=== PATIENT | female | born 1965 | race Caucasian/White ===

== ENCOUNTER 2023-08-26 12:18 | Emergency (ER) | payer OTHER ==
[~2023-08-26] VITALS: Ht 162.6 cm; Wt 68.0 kg
[2023-08-26 13:15] LABS: BASOPHILS # (AUTO) 0.02 K/uL (0.00-0.20); BASOPHILS % (AUTO) 0.3 % (0.0-5.0); EOSINOPHILS # (AUTO) 0.04 K/uL (0.00-0.70); EOSINOPHILS % (AUTO) 0.6 % (0.0-8.0); HEMATOCRIT 44.4 % (36-48); IMMATURE GRANULOCYTE ABSOLUTE 0.02 K/uL (0-1); LYMPHOCYTES # (AUTO) 1.6 K/uL (1.0-4.8); LYMPHOCYTES % (AUTO) 23.1 % (21.0-51.0); MEAN CORPUSCULAR HEMOGLOBIN 27.6 pg (27.0-33.0); MEAN CORPUSCULAR HGB CONC 33.3 g/dL (32.0-36.0); MEAN CORPUSCULAR VOLUME 82.7 fL (79-99); MONOCYTES # (AUTO) 0.4 K/uL (0.1-1.0); MONOCYTES % (AUTO) 6.2 % (3.0-13.0); NEUTROPHILS # (AUTO) 4.8 K/uL (1.8-7.7); NEUTROPHILS % (AUTO) 69.5 % (40.0-77.0); PLATELET COUNT (AUTO) 206 K/uL (130-400); RED BLOOD CELL COUNT(AUTO) 5.37 MIL/uL (4.00-5.50); RED CELL DISTRIBUTION WIDTH 13.3 % (11.0-15.5)
[2023-08-26 13:36] LABS: POTASSIUM 3.5 mmol/L (3.5-5.1)
[2023-08-26 13:37] LABS: B-TYPE NATRIURETIC PEPTIDE 7 pg/mL (0-100)
[2023-08-26 13:51] LABS: ALBUMIN 4.3 g/dL (3.5-5.0); BILIRUBIN,TOTAL 0.8 mg/dL (0.2-1.0)
[2023-08-26 14:09] VITALS: BP 134/88; PULSE 84; RESP 18; O2SAT 99
[2023-08-26 15:12] LABS: APPEARANCE,URINE CLEAR (CLEAR); BILIRUBIN,URINE NEGATIVE (NEGATIVE); COLOR,URINE LIGHT-YELLOW (YELLOW); GLUCOSE, URINE (UA) NEGATIVE (NEGATIVE); KETONES,URINE NEGATIVE (NEGATIVE); LEUKOCYTE ESTERASE ,URINE NEGATIVE Leu/uL (NEGATIVE); NITRATE,URINE NEGATIVE (NEGATIVE); OCCULT BLOOD,URINE SMALL (NEGATIVE); PH,URINE 5.5 (5.0-8.0); PROTEIN,URINE NEGATIVE (NEGATIVE); UROBILINOGEN,URINE 0.2 mg/dL (0.2-1.0)
[2023-08-26 15:15] LABS: ADD UA MICROSCOPIC YES
[2023-08-26 15:17] LABS: BACTERIA,URINE RARE /HPF (None Seen); MUCUS,URINE RARE LPF (None Seen); OTHER CASTS, URINE 1 /LPF (None Seen); SQUAMOUS EPITHELIAL CELL,UR FEW /HPF (0-2)
[2023-08-26] MEDS ORDERED: BUSP15 PO (15:28)
== END 2023-08-26 15:41 | disposition home or self-care (01) ==
LOC: EDH 12:18
DX: F41.9 Anxiety disorder, unspecified (principal); F43.9 Reaction to severe stress, unspecified; F03.90 Unspecified dementia, unspecified severity, without behavioral disturbance, psychotic disturbance, mood disturbance, and anxiety; F17.210 Nicotine dependence, cigarettes, uncomplicated; Z88.1 Allergy status to other antibiotic agents
CPT/HCPCS: 36415; 71045; 80053; 81001; 82550; 83874; 83880; 84443; 84484; 85025; 93005

== ENCOUNTER 2025-10-16 19:32 | Emergency (ER) | payer BC, OTHER ==
[~2025-10-16] VITALS: Ht 162.6 cm; Wt 71.7 kg
[~2025-10-16 19:32] MED LIST: BUSP15 PO
--- NOTE | 2025-10-16 21:06 | HMCIMG ---
EXAM: CR left ankle, 3 View. CLINICAL HISTORY: FALL, LANDING WITH LEG UNDER AND BEHIND HER COMPARISON: None provided. FINDINGS: BONES: No acute fracture or aggressive appearing osseous lesion. JOINTS: The joint spaces appear within normal limits. No dislocation. No radiographic evidence of a joint effusion. SOFT TISSUES: The soft tissues are unremarkable. IMPRESSION: No acute osseous abnormality. /[place]
--- NOTE | 2025-10-16 21:06 | HMCIMG ---
EXAM: CR left Knee, 3 View. CLINICAL HISTORY: FALL, LANDING WITH LEG UNDER AND BEHIND HER COMPARISON: None provided. FINDINGS: Suspected nondisplaced fracture of the lateral tibial plateau with intra-articular extension. Large suprapatellar knee joint effusion. Joint spaces remain anatomically aligned. IMPRESSION: 1. Suspected nondisplaced fracture of the lateral tibial plateau with intra-articular extension. 2. Large suprapatellar knee joint effusion. /[place]
--- NOTE | 2025-10-16 21:08 | HMCIMG ---
EXAM: CR left foot, 3 View. CLINICAL HISTORY: FALL, LANDING WITH LEG UNDER AND BEHIND HER COMPARISON: None provided. FINDINGS: BONES: No acute fracture or aggressive appearing osseous lesion. JOINTS: The joint spaces appear within normal limits. No dislocation. SOFT TISSUES: The soft tissues are unremarkable. IMPRESSION: No acute osseous abnormality. /[place]
--- NOTE | 2025-10-16 21:09 | HMCIMG ---
EXAM: CR left Tibia and fibula, 2 View. CLINICAL HISTORY: FALL, LANDING WITH LEG UNDER AND BEHIND HER COMPARISON: None provided. FINDINGS: Suspected nondisplaced fracture of the posterior lateral tibial plateau. No additional fractures appreciated. Joint spaces are anatomically aligned. IMPRESSION: 1. Suspected nondisplaced fracture of the posterior lateral tibial plateau. /[place]
--- NOTE | 2025-10-16 22:30 | NUR ---
PT CALLED, NO ANSWER
[2025-10-16] MEDS ORDERED: KETO10TA2 PO (22:40)
--- NOTE | 2025-10-16 22:40 | ERN ---
General Chief Complaint: Lower Extremity Pain/Injury Stated Complaint: FALL, LEFT LEG PAIN Time Seen by MD: 19:51 Time Seen by Midlevel: 19:51 Source: patient History of Present Illness Initial Comments 60-year-old female presents to the ER for evaluation following a mechanical ground level fall. Patient reports pain to her left knee. Denies any other sy mptoms. Specifically denies any head injury or loss of consciousness Allergies: Coded Allergies: cefaclor (Unverified Allergy, Unknown, 08/26/23) Home Meds Active Scripts Buspirone HCl (Buspar) 15 Mg Tab, 10 MG PO TID PRN for ANXIETY/AGITATION for 30 Days, #60 TAB 1 Refill Prov:SOLEDAD GUANCaroline 08/26/23 Past Medical History Past Medical History: No Pertinent History Past Surgical History: Social History Social History: Other ROS Dictation CONSTITUTIONAL: Negative except for HPI HEAD/FACE: Negative except for HPI EENT: Negative except for HPI RESPIRATORY: Negative except for HPI GASTROINTESTINAL/ABDOMINAL: Negative except for HPI GENITOURINARY: Negative except for HPI MUSCULOSKELETAL: Negative except for HPI INTEGUMENTARY: Negative except for HPI NEUROLOGICAL/PSYCH: Negative except for HPI HEMATOLOGIC/LYMPHATIC: Negative except for HPI All Systems Negative, Except as noted above. 13 point review of systems assessed and all negative except for above. Physical Exam Physical Exam Dictation Vital Signs reviewed General Appearance: Alert, oriented x 3, no acute distress, well developed, nourished. Head and Face: non-traumatic. Eyes: PERRL, pink conjunctivas, eyelid no trauma, anterior chamber with arcus senilis. Ears: Pinnas intact and no signs of trauma or erythema ear canals clear and no discharge TM no erythema Nose: No discharge, no bleeding. Oropharynx: Mouth normal, tongue pink, pharynx clear,no erythema, tonsils no exudates, no abscesses noted, mucous membrane moist Neck: Supple, non-tender, no thyromegaly, no masses, no JVD, no bruits Breast:Deferred Chest:No tenderness, no crepitus, no paradoxical movement, no retractions Lungs:Clear, well-ventilated, symmetric, no rales, no wheezing, no rhonchi, no stridor, good breath sounds bilaterally Heart: Regular rate, regular rhythm, no murmur, no gallops Vascular: no peripheral edema, Abdomen: Soft, positive bowel sounds, nondistended, no guarding, nontender, no rebound, no masses no hepatomegaly, no splenomegaly, no Nair's sign, no hernias. Rectal: Deferred Genital: Deferred Neurological: Normal speech, motor function intact, sensory function intact Musculoskeletal: Neck nontender, full range of motion, back nontender, full range of motion, Extremities: nontender, full range of motion Skin: Color pink, dry, no turgor, no rash, no lacerations, no abrasions, no contusions. Lymphatic: Deferred MDM MDM: Differential diagnosis: Fracture, contusion, dislocation There are no social concerns with this patient. Prescription drug management Prescriptions will include: Toradol Medical management and examination interpretation discussions were had by me with other qualified healthcare professionals as indicated for the patient's care. ED Course Orders Procedure Category Date Status Time Foot Comp 3+Vws Lt RAD 10/16/25 Resulted 20:16 Ankle Comp 3vws Lt RAD 10/16/25 Resulted 20:16 Tibia/Fibula 2vws Lt RAD 10/16/25 Resulted 20:16 Knee 3vws Lt RAD 10/16/25 Resulted 20:16 Vital Signs Date Time Temp Pulse Resp B/P (MAP) Pulse Ox O2 Delivery O2 Flow Rate FiO2 10/16/25 19:47 97.9 87 20 167/89 100 Room Air DX & DISP Disposition: Discharge Departure Impression: Primary Impression: Fracture of left tibial plateau Condition: Stable Scripts Ketorolac Tromethamine (Ketorolac Tromethamine) 10 Mg Tablet 1 TAB PO BID for pain for 5 Days, #10 TAB 0 Refills Prov: PADMINI ARENAS PAC 10/16/25 Referrals: MAXINE PASCUAL MD Time of Disposition: 22:39 I have reviewed the case, and I agree with, Diagnosis and Plan I performed the substantive portion of the visit. I have reviewed and personally made and approve the management plan that is documented in the note by myself or the [facility]. I acknowledge for responsibility for the patient's management plan. PADMINI ARENAS PAC Oct 16, 2025 22:40
--- NOTE | 2025-10-16 22:52 | NUR ---
[employer] TRAINING PROVIDED. PT REPEAT DEMONSTRATION LEFT LOWER EXTREMITIY PLACED IN KNEE IMMOBILIZER. CAP REFILL LESS THAN 2 SECONDS
[2025-10-16 23:02] VITALS: BP 132/68; PULSE 75; RESP 18; TEMP 98; O2SAT 99
== END 2025-10-16 23:03 | disposition home or self-care (01) ==
LOC: EDH 19:32
DX: S82.142A Displaced bicondylar fracture of left tibia, initial encounter for closed fracture (principal); Z88.1 Allergy status to other antibiotic agents; Z98.890 Other specified postprocedural states; W18.39XA Other fall on same level, initial encounter; Y93.89 Activity, other specified; Y92.89 Other specified places as the place of occurrence of the external cause; Y99.8 Other external cause status
CPT/HCPCS: 73562; 73590; 73610; 73630; 99283